=== PATIENT | male | born 1995 | race Caucasian/White ===

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

== ENCOUNTER 2017-01-27 08:27 | Emergency (ER) | payer OTHER ==
[~2017-01-27] VITALS: Ht 167.6 cm; Wt 58.0 kg
[~2017-01-27 08:27] MED LIST changes: +ACET500C5 PO
[2017-01-27 08:30] VITALS: Ht 167.6 cm; Wt 58.0 kg
[2017-01-27] MEDS ORDERED: LORAZEPAM 2 MG INJ IM ONE (10:00)
[2017-01-27] MEDS ORDERED: LEVE100018 PO (10:20)
[2017-01-27] MEDS ORDERED: LAMO200T PO (10:20)
[2017-01-27] MEDS ORDERED: PRIM50TA38 PO (10:20)
--- NOTE | 2017-01-27 10:36 | RADRPT ---
PROCEDURE: CT Brain without. CLINICAL INDICATION: Syncope. TECHNIQUE: A CT of the brain was performed on multidetector high-resolution CT scanner utilizing a xial sections from the skull base through the vertex without contrast. The scan was reviewed in sof t tissue brain and high frequency resolution bone algorithm windows. Images were reviewed on a high -resolution PACS workstation. One or more the following does reduction techniques were utilized: Aut omated exposure control, adjustment of the mA/ or kV according to patient's size, or use of iterativ e reconstruction technique. The exam CTDI = 32.01 mGy and the DLP = 515.98 mGy-cm. COMPARISON: Brain CT 10/27/2008. FINDINGS: The ventricles and sulci are age-appropriate. There is no intracranial hemorrhage, mass effect or mi dline shift. Asymmetric mildly prominent left sylvian fissure is noted which could be developmental . No abnormal intra-axial or extra-axial fluid collections are seen. The antonio/white matter different iation is preserved. No acute skull abnormality is noted. The visualized paranasal sinuses are essen tially clear. Left frontal scalp swelling is noted without underlying skull fracture. IMPRESSION: 1. No acute intracranial hemorrhage, transcortical infarction or mass effect. 2. Asymmetric mildly prominent left sylvian fissure which could be developmental. 3. Left frontal scalp swelling without underlying skull fracture. RPTAT: JJ .Tatiana Light MD, MD Date Time Electronically viewed and signed by .Tatiana Light MD, MD on 01/27/2017 10:36 .N/
[2017-01-27 10:57] LABS: BASOPHIL # 0.1 10^3/ul (0.0-0.1); BASOPHILS % 0.8 % (0.0-2.0); EOSINOPHILS # 0.1 10^3/ul (0.0-0.5); EOSINOPHILS % 1.2 % (0.0-7.0); HEMATOCRIT 44.9 % (42.0-52.0); HEMOGLOBIN 14.7 g/dl (14.0-18.0); LYMPHOCYTES # 1.5 10^3/ul (0.8-2.9); LYMPHOCYTES % 24.6 % (18.0-55.0); MEAN CORPUSCULAR HEMOGLOBIN 29.7 pg (29.0-33.0); MEAN CORPUSCULAR HGB CONC 32.7 g/dl (32.0-37.0); MEAN CORPUSCULAR VOLUME 90.7 fl (72.0-104.0); MEAN PLATELET VOLUME 10.4 fl (7.4-10.4); MONOCYTE # 0.5 10^3/ul (0.3-0.9); MONOCYTES % 8.4 % (0.0-13.0); NEUTROPHIL # 3.9 10^3/ul (1.6-7.5); NEUTROPHILS % 64.8 % (30.0-74.0); PLATELET COUNT 221 10^3/UL (140-415); RED BLOOD COUNT 4.95 10^6/ul (4.70-6.10); RED CELL DISTRIBUTION WIDTH 13.4 % (11.5-14.5); WHITE BLOOD COUNT 6.1 10^3/ul (4.8-10.8)
[2017-01-27 11:23] LABS: CALCIUM 9.5 mg/dl (8.4-10.2); CREATININE 0.9 mg/dl (0.61-1.24); POTASSIUM 4.1 mmol/L (3.5-5.1)
--- NOTE | 2017-01-27 11:54 | ERD ---
ER Documentation Chief Complaint Chief Complaint PER MOM PT FAINTED, AFTER SHOWER, SBP 95, FELL ON SOFA, DENIES TRAUMA HPI This is a 21-year-old autistic male who has a history of seizure disorder who was syncopal today. Mom states that he did not have breakfast today he was walking across the living room when he was by the couch he fell onto the couch and became pale and sweaty. She said that he then went to sleep for 15-20 minutes. He then woke up and was normal acting. The patient has a history of seizure disorder that are very atypical seizures. Sometimes he will have a brief shaking spell and becomes postictal sometimes he has absence seizure's with no postictal state. The patient has since been acting normal and has no recent illness. Patient does frequently hit his head because he is very active. He has had no vomiting no recent fever no cough no complaints from the patient to the parents whatsoever. ROS All systems reviewed and are negative except as per history of present illness. Medications Home Meds Reported Medications Primidone* (Mysoline*) 50 Mg Tablet, 125 MG PO BID, TAB 01/27/17 Lamotrigine* (Lamotrigine*) 200 Mg Tablet, 200 MG PO BID, TAB 01/27/17 Levetiracetam* (Keppra*) 1,000 Mg Tablet, 1500 MG PO BID, TAB 01/27/17 Discontinued Reported Medications [Unk Abx] No Conflict Check 07/03/11 Lamotrigine* (Lamictal* CHEW) 25 Mg Tab.disper 06/25/11 Levetiracetam* (Keppra* (Ped)) 100 Mg/Ml Liq 10/12/09 Primidone (Mysoline) 50 Mg Tablet 10/12/09 Discontinued Scripts Acetaminophen* (Tylophen*) 500 Mg Capsule, 1 CAP PO Q6H Y for PAIN AND OR ELEVATED TEMP, #30 CAP Prov:REN CISSE PA-C 11/05/16 Front Wheel Walker* (Front Wheel Walker*) 1 Each Dme, 1 EACH MC DIRECTED, #1 DME 0 Refills Prov:TIFFANI WARREN PA-C 06/18/16 Crutch (Crutch) 1 Each Each, 1 EACH MC, #1 Prov:TIFFANI WARREN PA-C 06/18/16 Ibuprofen* (Motrin*) 600 Mg Tab, 600 MG PO Q6H Y for PAIN AND OR ELEVATED TEMP, #30 TAB Prov:TIFFANI WARREN PA-C 06/18/16 Allergies Allergies: Coded Allergies: No Known Drug Allergy (Verified Allergy, Mild, 06/18/16) PMhx/Soc History of Surgery: No Anesthesia Reaction: No Hx Respiratory Disorders: No Hx Cardiac Disorders: No Hx Psychiatric Problems: No Hx Miscellaneous Medical Probl: No Hx Alcohol Use: No Hx Substance Use: No Hx Tobacco Use: No Smoking Status: Never smoker FmHx Family History: No coronary disease Physical Exam Vitals Vital Signs Date Time Temp Pulse Resp B/P Pulse Ox O2 Delivery O2 Flow Rate FiO2 01/27/17 08:30 97.2 78 20 121/56 99 Physical Exam Const: Well-developed, well-nourished, very active in the room Head: Atraumatic, normocephalic, slight left frontal scalp swelling Eyes: Normal Conjunctiva, PERRLA, EOMI, normal sclera, no nystagmus ENT: Normal External Ears, Nose and Mouth, moist mucus membranes. Neck: Full range of motion. No meningismus, no lymphadenopathy. Resp: Clear to auscultation bilaterally, no wheezing, rhonchi, rales Cardio: Regular rate and rhythm, no murmurs, S1 S2 present Abd: Soft, non tender x 4, non distended. Normal bowel sounds, no guarding or rebound, no pulsitile abdominal masses or bruits Skin: No petechiae or rashes, no ecchymosis , no maculopapular rash Back: No midline or flank tenderness Ext: No cyanosis, or edema, FROM x 4, normal inspection, neurovascularly intact x 4 Neur: Awake and alert, STR 5/5 x 4, sensation intact x 4, no focal findings, cerebellum intact Psych: Normal Mood and Affect for his baseline Result Diagram: 01/27/17 1034 01/27/17 1034 Results 24 hrs Laboratory Tests Test 01/27/17 10:34 White Blood Count 6.110^3/ul Red Blood Count 4.9510^6/ul Hemoglobin 14.7g/dl Hematocrit 44.9% Mean Corpuscular Volume 90.7fl Mean Corpuscular Hemoglobin 29.7pg Mean Corpuscular Hemoglobin Concent 32.7g/dl Red Cell Distribution Width 13.4% Platelet Count 59603^3/UL Mean Platelet Volume 10.4fl Neutrophils % 64.8% Lymphocytes % 24.6% Monocytes % 8.4% Eosinophils % 1.2% Basophils % 0.8% Nucleated Red Blood Cells % 0.0/100WBC Neutrophils # 3.910^3/ul Lymphocytes # 1.510^3/ul Monocytes # 0.510^3/ul Eosinophils # 0.110^3/ul Basophils # 0.110^3/ul Nucleated Red Blood Cells # 0.010^3/ul Sodium Level 140mmol/L Potassium Level 4.1mmol/L Chloride Level 102mmol/L Carbon Dioxide Level 30mmol/L Anion Gap 12 Blood Urea Nitrogen 13mg/dl Creatinine 0.90mg/dl Glucose Level 83mg/dl Calcium Level 9.5mg/dl Current Medications Medications (Trade) Dose Ordered Sig/Belinda Route PRN Reason Start Time Stop Time Status Last Admin Dose Admin Lorazepam (Ativan) 1 mg ONCE ONCE IM 01/27/17 10:00 01/27/17 10:01 DC 01/27/17 10:07 Procedures/MDM EKG: Rate/Rhythm: Normal sinus rhythm, right axis deviation, incomplete right bundle branch block QRS, ST, QT: NORMAL RI, QRS, QT] Impression: Normal EKG PROCEDURE: CT Brain without. CLINICAL INDICATION: Syncope. TECHNIQUE: A CT of the brain was performed on multidetector high-resolution CT scanner utilizing axial sections from the skull base through the vertex without contrast. The scan was reviewed in soft tissue brain and high frequency resolution bone algorithm windows. Images were reviewed on a high- resolution PACS workstation. One or more the following does reduction techniques were utilized: Automated exposure control, adjustment of the mA/ or kV according to patient's size, or use of iterative reconstruction technique. The exam CTDI = 32.01 mGy and the DLP = 515.98 mGy-cm. COMPARISON: Brain CT 10/27/2008. FINDINGS: The ventricles and sulci are age-appropriate. There is no intracranial hemorrhage, mass effect or midline shift. Asymmetric mildly prominent left sylvian fissure is noted which could be developmental. No abnormal intra-axial or extra-axial fluid collections are seen. The antonio/white matter differentiation is preserved. No acute skull abnormality is noted. The visualized paranasal sinuses are essentially clear. Left frontal scalp swelling is noted without underlying skull fracture. IMPRESSION: 1. No acute intracranial hemorrhage, transcortical infarction or mass effect. 2. Asymmetric mildly prominent left sylvian fissure which could be developmental. 3. Left frontal scalp swelling without underlying skull fracture. RPTAT: JJ .Tatiana Light MD, Date Time Electronically viewed and signed by .Tatiana Light MD, MD on 01/27/2017 10: 36 .N/ CC: LOUISE URENA DO The patient may have had a typical seizure. He does sound like he was postictal for 15-20 minutes this is likely diagnosis. He could have also had a hypoglycemic episode as he did not have any breakfast today. This is less likely as he was "sleeping" for 15-20 minutes. No evidence of any acute pathology on blood work or CAT scan brain. We will go home with parents and observe closely and make sure he has balanced meals scattered throughout the day Patient takes Keppra and Lamictal for seizures I will not adjust the dosage at this point Departure Diagnosis: Primary Impression: Syncope Syncope type: unspecified Qualified Code: R55 - Syncope, unspecified syncope type Additional Impression: Seizure Condition: Stable Patient Instructions: Causes of Syncope, Seizure, Recurrent [Child] LOUISE URENA DO Jan 27, 2017 11:54
[2017-01-27 12:10] VITALS: BP 113/71; PULSE 71; RESP 20
== END 2017-01-27 13:11 | disposition home or self-care (01) ==
LOC: E/R 08:27
DX: R55 Syncope and collapse (principal); G40.909 Epilepsy, unspecified, not intractable, without status epilepticus
CPT/HCPCS: 36415; 70450; 80048; 85025; 93005; 96372; J2060; Z7502

== ENCOUNTER 2017-12-16 18:40 | Emergency (ER) | END 2017-12-16 22:46 | disposition home or self-care (01) ==

== ENCOUNTER 2018-05-23 07:54 | Emergency (ER) | payer OTHER ==
[~2018-05-23] VITALS: Ht 172.7 cm; Wt 64.5 kg
[~2018-05-23 07:54] MED LIST changes: -ACET500C5 PO; -CRUT1EAC7 MC; -IBUP-1542 PO; -KEP100S; +LAMO200T2 PO; -LAMO25TB2; +LEVE10006 PO; +PRIM250T37 PO; -PRIM50TA26; -UNK ABX; -WALK1EAC23 MC
[2018-05-23 07:56] VITALS: Ht 172.7 cm; Wt 64.5 kg
[2018-05-23] MEDS ORDERED: LIDOCAINE 4% CR TOP ONE (08:30)
--- NOTE | 2018-05-23 08:34 | ERD ---
ER Documentation Chief Complaint Chief Complaint solitario alejo , seizure @ 0700 today HPI This is a 22-year-old male with a known history of epilepsy and low functioning autism. The patient is unable to provide any history as he is limited in verbal speech due to his underlying autism. The mother indicates that an hour prior to arrival he had a very short seizure, tonic-clonic that lasted for roughly 10 seconds. He did hit the back of his head onto a sharp wood piece of furniture. The mother indicated that the patient returned to his baseline mental status within several seconds. He did not lose urinary incontinence or bite his tongue. He has not experienced any emesis. His tetanus is up-to-date. The mother states there is been no recent infections. The patient did not experience any coughing choking or gagging episode. The mother also indicates that the patient has been compliant with his Keppra ROS All systems reviewed and are negative except as per history of present illness. Medications Home Meds Reported Medications Levetiracetam* (Levetiracetam*) 1,000 Mg Tablet, 1500 MG PO BID, TAB 12/16/17 Primidone* (Mysoline*) 250 Mg Tablet, 250 MG PO BID, TAB 12/16/17 Lamotrigine* (Lamotrigine*) 200 Mg Tablet, 200 MG PO BID, TAB 12/16/17 Allergies Allergies: Coded Allergies: No Known Drug Allergy (Verified Allergy, Mild, 12/16/17) PMhx/Soc History of Surgery: No Anesthesia Reaction: No Hx Respiratory Disorders: No Hx Cardiac Disorders: No Hx Psychiatric Problems: No Hx Miscellaneous Medical Probl: No Hx Alcohol Use: No Hx Substance Use: No Hx Tobacco Use: No Smoking Status: Never smoker Physical Exam Vitals Vital Signs Date Temp Pulse Resp B/P (MAP) Pulse Ox O2 O2 Flow FiO2 Time Delivery Rate 05/23/18 98.0 77 18 128/63 99 Room Air 10:40 (84) 05/23/18 97.8 84 18 126/68 99 07:56 (87) Physical Exam Constitutional:Well-developed. Well-nourished. HEENT:Normocephalic. 4 cm linear laceration with no exposure of the calvarium over the right occipital region.Pupils were equal round reactive to light. Moist mucous membranes.No tonsillar exudates. Neck: No nuchal rigidity. No lymphadenopathy. No posterior cervical spine tenderness or step-offs. Respiratory: Not using accessory muscles of respiration.Lungs were clear to auscultation bilaterally. No rhonchi. No rales. No wheezing. Cardiovascular: Regular rate regular rhythm.No murmurs. No rubs were appreciated.S1, S2 normal. Distal pulses are palpable 2+ bilaterally. GI: Abdomen was soft. Nontender. Non Distended. No pulsatile abdominal masses or bruits. No rebound. No guarding. Bowel sounds were present and normal. Muscle skeletal: Full range of motion of both the upper and lower extremities bilaterally.Normal muscle tone.No assymetrical calf tenderness or swelling. Skin: No petechia, no purpura. No lesions on the palms or the soles of the feet. No maculopapular rash. NEURO: Patient was alert, awake but nonverbal. Patient has autism. Gait observed and normal Results 24 hrs Current Medications Medications Dose Sig/Belinda Start Time Status Last (Trade) Ordered Route PRN Stop Time Admin Dose Reason Admin Lidocaine 1 applic ONCE ONCE 05/23/18 DC 05/23/18 (Lmx 4% Plus) TOP 08:30 08:15 05/23/18 08:31 Procedures/MDM This is a 22-year-old male with history of autism. Both the parents were at bedside. I did feel is necessary to obtain a CT scan of the patient's head due to his physical exam findings. There is no evidence of intracerebral hemorrhage mass-effect or midline shift. The patient was given LMX gel for analgesia over the scalp laceration site. The wound was irrigated using high-pressure normal saline. This was visualized by myself under direct light. There is no evidence of foreign body or underlying scalp hematoma. I had a lengthy discussion with the parents and they stated they would prefer sutures versus prabhu as the patient tends to become very agitated with the prabhu and has removed them in the past. Procedure note: Analgesic control was performed with topical analgesic medicatio n using LMX gel. Once analgesia was obtained as stated above the wound was irrigated. 4-0 chromic gut was used to oppose the wound. 4 simple interrupted sutures were placed. Wound length after repair was 4 cm. Hemostasis was controlled. Patient tolerated the procedure well. Topical antimicrobial gel being bacitracin was applied to the wound site. I did not feel the patient required any antiepileptic medication in the emergency department as the parents state he has been compliant with all of his medications. He had no seizure activity while in the emergency department. The patient was discharged home in fair condition. They were instructed to return to the emergency department at any time if there was any worsening of their condition. The patient stated they would follow up with their PCP in the next 24-48 hours to initiate a suitable medication regimen under the care of their PCP as well as to allow their PCP to monitor any drug reactions. The patient was discharged home with prescriptions after they gave informed consent to the new medication. They were also fully informed by myself on the adverse effects and adverse drug interactions in order to provide adequate safeguards to prevent possible adverse reactions to medications. Departure Diagnosis: Primary Impression: Breakthrough seizure Additional Impression: Occipital scalp laceration Encounter type: initial encounter Qualified Codes: S01.01XA - Laceration without foreign body of scalp, initial encounter Condition: Fair AJAY LOPEZ MD May 23, 2018 08:34
[2018-05-23 10:40] VITALS: BP 128/63; PULSE 77; RESP 18
== END 2018-05-23 10:23 | disposition home or self-care (01) ==
LOC: E/R 07:54
DX: G40.909 Epilepsy, unspecified, not intractable, without status epilepticus (principal); S01.01XA Laceration without foreign body of scalp, initial encounter; F84.0 Autistic disorder; R40.2142 Coma scale, eyes open, spontaneous, at arrival to emergency department; R40.2222 Coma scale, best verbal response, incomprehensible words, at arrival to emergency department; R40.2362 Coma scale, best motor response, obeys commands, at arrival to emergency department; W26.8XXA Contact with other sharp object(s), not elsewhere classified, initial encounter; Y92.9 Unspecified place or not applicable
CPT/HCPCS: 12002; 70450; Z7502

== ENCOUNTER 2018-07-13 20:01 | Emergency (ER) | payer OTHER ==
[~2018-07-13] VITALS: Wt 62.6 kg
[2018-07-13] MEDS ORDERED: ACET500C5 PO (23:30)
[2018-07-13 23:39] VITALS: BP 114/63; PULSE 68; RESP 18
--- NOTE | 2018-07-13 23:40 | ERD ---
ER Documentation Chief Complaint Chief Complaint father noticed abrasion to top of scalp, +hematoma. unknown if he fell HPI Patient is a 22-year-old male brought in by father, past medical history of autism, seizure disorder, currently on Lamotrigine and Levetiracetam, who presents to the ER for concerns of a scalp abrasion which occurred earlier today.. History is provided by the patient's father's patient is nonverbal. Father states the nurse from the patient's school called to state that patient had some bleeding from his upper parietal scalp today. School nurse did not witness any injuries. Father and school nurse are unsure if patient fell or hit his head. Per father, patient is acting appropriately. Patient is ambulatory without any difficulty. Patient has not had any vomiting or loss of consciousness while the patient has been with his father. Father did give the patient 2 ibuprofen prior to arrival. Father states this morning he did not notice any injuries to the patient's scalp while getting him ready for school. Of note, patient does have approximately 5 seizures per week. Father states this is patient's baseline. ROS All systems reviewed and are negative except as per history of present illness. Medications Home Meds Active Scripts Acetaminophen* (Tylophen*) 500 Mg Capsule, 1 CAP PO Q6H PRN for PAIN AND OR ELEVATED TEMP, #20 CAP Prov:JESSICA MEDINA PA-C 07/13/18 Reported Medications Levetiracetam* (Levetiracetam*) 1,000 Mg Tablet, 1500 MG PO BID, TAB 12/16/17 Primidone* (Mysoline*) 250 Mg Tablet, 250 MG PO BID, TAB 12/16/17 Lamotrigine* (Lamotrigine*) 200 Mg Tablet, 200 MG PO BID, TAB 12/16/17 Allergies Allergies: Coded Allergies: No Known Drug Allergy (Verified Allergy, Mild, 07/13/18) PMhx/Soc Medical and Surgical Hx: pt denies Surgical Hx History of Surgery: No Anesthesia Reaction: No Hx Respiratory Disorders: No Hx Cardiac Disorders: No Hx Psychiatric Problems: No Hx Miscellaneous Medical Probl: No Hx Alcohol Use: No Hx Substance Use: No Hx Tobacco Use: No FmHx Family History: No diabetes Physical Exam Vitals Vital Signs Date Temp Pulse Resp B/P (MAP) Pulse Ox O2 O2 Flow FiO2 Time Delivery Rate 07/13/18 97.8 76 20 138/66 97 20:15 (90) Physical Exam GENERAL: Well-developed, well-nourished autistic male. Nonverbal. Appears in no acute distress. HEAD: Normocephalic. Superficial abrasion noted to the parietal scalp. No lacerations noted. Small hematoma noted. No step-offs. EYES: Pupils are equally reactive bilaterally. EOMs grossly intact. No conjunctival erythema. No periorbital ecchymosis or swelling. ENT: Moist mucous membranes. No uvula deviation. No kissing tonsils. No hemotympanum noted bilaterally. No mastoid ecchymosis or swelling. NECK: Supple. No meningismus. Normal range of motion of the neck. No cervical midline tenderness. LUNG: Clear to auscultation bilaterally. No rhonchi, wheezing, rales or coarse b reath sounds. HEART: Regular rate and rhythm. No murmurs, rubs or gallops. BACK: No midline tenderness. EXTREMITIES: Equal pulses bilaterally. No peripheral clubbing, cyanosis or edema. No unilateral leg swelling. NEUROLOGIC: Alert and oriented. Moving all four extremities without any difficulty. Steady gait. Unable to assess cranial nerves as patient has decreased neuro function at baseline. SKIN: Normal color. Warm and dry. No rashes or lesions. Procedures/MDM ED COURSE: The patient was stable throughout ED course. I kept the patient and/or family informed of laboratory and diagnostic imaging results throughout the ED course. DIAGNOSTIC IMAGING: Read by radiologist. Patient: RANDELL MENESES : 1995 Age: 22 Sex: M MR #: [id number] [facility] #: [id number] DOS: 07/13/18 2241 Ordering MD: JESSICA MEDINA PA-C Location: FTE Room/Bed: PROCEDURE: CT Brain without contrast. CLINICAL INDICATION: Trauma TECHNIQUE: A CT of the brain was performed on a multidetector CT scanner utilizing axial imaging from the skull base through the vertex without IV contrast. Multiplanar reformatted images were made. Images were reviewed on a PACS workstation. The CTDIvol is 39 mGy and the DLP is 634 mGycm. DICOM images are available. One or more of the following dose reduction techniques were utilized: 1.) Automated exposure control 2.) Adjustment of the mA +/- kV according to patient's size 3.) Use of iterative reconstruction technique. COMPARISON: Head CT May 23, 2018 FINDINGS: There is no intracranial hemorrhage, mass effect, or midline shift. No extra- axial fluid collection is seen. The ventricles and sulci are normal in size and configuration. The density of the brain is normal, and the antonio white matter differentiation appears well-preserved. The visualized paranasal sinuses and osseous structures are grossly unremarkable. There is no skull fracture. No scalp hematoma is seen. IMPRESSION: Normal head CT. No intracranial hemorrhage or skull fracture. .Jg Bryant MD, MD Date Time Electronically viewed and signed by .Jg Bryant MD, on 07/13/2018 23:20 .A/ CC: JESSICA MEDINA PA-C [id number] MEDICAL DECISION MAKING: Patient is a 22-year-old autistic male, brought in by father, with past medical history of seizure disorder, who presents to the ER for concerns of scalp abrasion which occurred while the patient was likely at school. Injury was not witnessed. Father received a call from the patient's school nurse stating that patient did have an abrasion on his scalp. It is unclear if patient fell. Vital signs were reviewed. Patient is afebrile. Patient was not hypoxic. Patient was hemodynamically stable. Per father, patient is acting appropriately. Father denies any changes in the patient's neuro status. Given that the patient is nonverbal and it was difficult to determine if patient did hit his head or not, CT imaging was obtained. CT brain imaging was unremarkable. See formal report above. Low suspicion for skull fracture, intracranial hemorrhage, intracranial edema, midline shift. Father was given strict ER return precautions advised to return to the ER for any new or worsening symptoms. PRESCRIPTION: Tylenol DISCHARGE: At this time, patient is stable for discharge and outpatient management. I have instructed the patient to follow-up with his/her primary care physician in 1-2 days. I have discussed with the patient the possibility of needing to see a specialist for further workup and imaging studies if symptoms persist. I have instructed the patient to promptly return to the ER for any new or worsening symptoms including increased pain, fever, nausea, vomiting, weakness or LOC. The patient and/or family expressed understanding of and agreement with this plan. All questions were answered. Home care instructions were provided. Disclaimer: Inadvertent spelling and grammatical errors are likely due to EHR/dictation software use and do not reflect on the overall quality of patient care. Also, please note that the electronic time recorded on this note does not necessarily reflect the actual time of the patient encounter. Departure Diagnosis: Primary Impression: Scalp abrasion Encounter type: initial encounter Qualified Codes: S00.01XA - Abrasion of scalp, initial encounter Additional Impressions: Non-verbal learning disorder Seizure disorder Autistic disorder Condition: Fair Patient Instructions: HEAD INJURY, No Wake-Up (Adult) Referrals: [facility] YOU HAVE RECEIVED A MEDICAL SCREENING EXAM AND THE RESULTS INDICATE THAT YOU DO NOT HAVE A CONDITION THAT REQUIRES URGENT TREATMENT IN THE EMERGENCY DEPARTMENT. FURTHER EVALUATION AND TREATMENT OF YOUR CONDITION CAN WAIT UNTIL YOU ARE SEEN IN YOUR DOCTORS OFFICE WITHIN THE NEXT 1-2 DAYS. IT IS YOUR RESPONSIBILITY TO MAKE AN APPOINTMENT FOR FOLOW-UP CARE. IF YOU HAVE A PRIMARY DOCTOR --you should call your primary doctor and schedule an appointment IF YOU DO NOT HAVE A PRIMARY DOCTOR YOU CAN CALL OUR PHYSICIAN REFERRAL HOTLINE AT IF YOU CAN NOT AFFORD TO SEE A PHYSICIAN YOU CAN CHOSE FROM THE FOLLOWING [facility] [address] [facility]. [facility] [address] [facility] [facility] [address] [facility] [facility] [address] [facility]. [facility] [address] [facility]. [facility]. [address] [facility] YOU HAVE RECEIVED A MEDICAL SCREENING EXAM AND THE RESULTS INDICATE THAT YOU DO NOT HAVE A CONDITION THAT REQUIRES URGENT TREATMENT IN THE EMERGENCY DEPARTMENT. FURTHER EVALUATION AND TREATMENT OF YOUR CONDITION CAN WAIT UNTIL YOU ARE SEEN IN YOUR DOCTORS OFFICE WITHIN THE NEXT 1-2 DAYS. IT IS YOUR RESPONSIBILITY TO MAKE AN APPOINTMENT FOR FOLOW-UP CARE. IF YOU HAVE A PRIMARY DOCTOR --you should call your primary doctor and schedule and appointment IF YOU DO NOT HAVE A PRIMARY DOCTOR YOU CAN CALL OUR PHYSICIAN REFERRAL HOTLINE AT . IF YOU CAN NOT AFFORD TO SEE A PHYSICIAN YOU CAN CHOSE FROM THE FOLLOWING [facility] INSTITUTIONS: [facility] [address] [place] [address] [facility] [address] [place] [address] [facility] + [facility] [address] [place] [address] Additional Instructions: Call your primary care doctor TOMORROW for an appointment during the next 1-2 days.See the doctor sooner or return here if your condition worsens before your appointment time. JESSICA MEDINA PA-C Jul 13, 2018 23:40
== END 2018-07-13 23:40 | disposition home or self-care (01) ==
LOC: FTE 20:01
DX: S00.01XA Abrasion of scalp, initial encounter (principal); G40.909 Epilepsy, unspecified, not intractable, without status epilepticus; F81.89 Other developmental disorders of scholastic skills; F84.0 Autistic disorder; R51 Headache; X58.XXXA Exposure to other specified factors, initial encounter; Y92.219 Unspecified school as the place of occurrence of the external cause
CPT/HCPCS: 70450; Z7502